=== PATIENT | male | born 1990 | race Caucasian/White ===

== ENCOUNTER 2022-06-03 19:57 | Emergency (ER) | payer BC ==
[2022-06-03] MEDS: Lidocaine 1% 5 ML VIAL INJECT ONE ×3 (20:15→20:46)
[2022-06-03] MEDS: Lidocaine 1% PF 2 ML SDV INJECT ONE ×2 (20:26→20:52)
[2022-06-03] MEDS ORDERED: Amoxicillin 500 MG Cap PO ONE (20:31)
[2022-06-03] MEDS ORDERED: Amoxicillin 500 MG Cap ONE (21:00)
== END 2022-06-03 21:06 | disposition home or self-care (01) ==
LOC: LB.ED 19:57
DX: S00.85XA Superficial foreign body of other part of head, initial encounter (principal); W45.8XXA Other foreign body or object entering through skin, initial encounter
CPT/HCPCS: 70140; 99283; A9270-GY